=== PATIENT | male | born 1995 | race Caucasian/White ===

== ENCOUNTER 2017-10-20 13:18 | Emergency (ER) | payer BC ==
--- NOTE | 2017-10-20 14:27 | ED ---
Throat Pain/Nasal Congestion - HPI Summary HPI Summary: 22M presents with sore throat since yesterday. He denies any fever. He denies any cough. He denies any abdominal pain, nausea or vomiting. He does not have a history of strept. He states the swelling in his throat has increased. He has not taken anything for his pain. - History of Current Complaint Time Seen by Provider: 10/20/17 14:17 - Allergies/Home Medications Allergies/Adverse Reactions: Allergies Allergy/AdvReac Type Severity Reaction Status Date / Time No Known Allergies Allergy Verified 10/20/17 14:18 Home Medications: Home Medications Dextromethorphan-Phenylephrine [Vicks Dayquil Cold & Flu] 2 cap PO DAILY PRN [History Confirmed 10/20/17] [id number] [Nyquil Severe Cold/Flu 5-6.25-10-325 mg/15Ml] 2 liq PO QPM PRN 10/20/17 [History Confirmed 10/20/17] PMH/Surg Hx/FS Hx/Imm Hx Endocrine/Hematology History: Denies: Hx Anticoagulant Therapy Respiratory History: Denies: Hx Asthma Infectious Disease History: Denies: Traveled Outside the [place] in Last 30 Days - Family History Known Family History: Negative: Respiratory Disease Review of Systems Negative: Fever Positive: Sore Throat Negative: Chest Pain Negative: Shortness Of Breath All Other Systems Reviewed And Are Negative: Yes Physical Exam Triage Information Reviewed: Yes Vital Signs Reviewed: Yes Appearance: Positive: Well-Appearing Skin: Positive: Warm, Dry Head/Face: Positive: Normal Head/Face Inspection Eyes: Positive: Normal, EOMI, ANGEL, Conjunctiva Clear ENT: Positive: Pharyngeal erythema, TMs normal, Tonsillar swelling - +3, Uvula midline, Other - soft palate symmetric. Negative: Tonsillar exudate, Trismus, Muffled voice Neck: Positive: Supple, Nontender, No Lymphadenopathy Respiratory/Lung Sounds: Positive: Clear to Auscultation, Breath Sounds Present Cardiovascular: Positive: Normal, RRR Abdomen Description: Positive: Nontender, Soft Bowel Sounds: Positive: Present Musculoskeletal: Positive: Normal Neurological: Positive: Normal Psychiatric: Positive: Normal EENT Course/Dx - Course Course Of Treatment: 22M presents with sore throat since yesterday. He denies any fever. He denies any cough. He denies any abdominal pain, nausea or vomiting. He does not have a history of strept. He states the swelling in his throat has increased. He has not taken anything for his pain. on exam tonsils+ 3, uvula midline, soft palate symmetric. strep pos. will treat with decadron, amoxillicin, and magic mouth wash. medication reviewed. patient understand and agrees with plan. - Differential Diagnoses Differential Diagnoses: Pharyngitis, Tonsilitis, URI/Bronchitis - Diagnoses Provider Diagnoses: Streptococcal sore throat Discharge - Discharge Plan Condition: Good Disposition: HOME Prescriptions: Amoxicillin PO (*) [Amoxicillin 500 MG CAP*] 500 mg PO Q12H #20 cap Dexamethasone TAB* [Decadron TAB*] 4 mg PO DAILY #5 tab Magic Mouth Was-EJ/MAAL/LIDO* 5 ml SWISH SPIT QID #100 ml Patient Education Materials: Strep Throat (ED) Referrals: [facility] [place] [facility] [Outside] Additional Instructions: Take antibiotic twice a day for 10 days Magic mouthwash 5ml swish and spit can use 4x a day Take steroid once a day for 5 days Take Tylenol or ibuprofen for pain every 6 hours Can use cough drops or products such as cloraseptic spray Establish care with primary care physician Return to ED if develop fever does not respond to Tylenol or ibuprofen, inability to swallow, difficulty breathing or any new or worsening symptoms
[2017-10-20 14:35] VITALS: BP 111/65
== END 2017-10-20 14:44 | disposition home or self-care (01) ==
LOC: UCCORT 13:18
DX: J02.0 Streptococcal pharyngitis (principal)
CPT/HCPCS: 87651; 99202; G0463